=== PATIENT | female | born 1980 | race African-American/Black ===

== ENCOUNTER 2021-01-08 19:16 | Inpatient (IN) | payer OTHER ==
[2021-01-08 20:47] LABS: BASO % 0.6 % (0-2.0); HEMATOCRIT 35.5 % (32.4-45.2); HEMOGLOBIN 11.7 GM/dL (10.7-15.3); LYMPH % 24.1 % (8-40); MCH 26.1 pg (25.7-33.7); MCHC 32.9 g/dl (32.0-36.0); MEAN CELL VOLUME 79.3 fl (80-96); MEAN PLT VOLUME 8.5 fl (7.5-11.1); MONO % 8.1 % (3.8-10.2); NEUT % 66.2 % (42.8-82.8); PLATELET COUNT 218 10^3/uL (134-434); RBC 4.48 M/mm3 (3.60-5.2); RDW 17.4 % (11.6-15.6); WHITE BLOOD COUNT 10.1 K/mm3 (4.0-10.0)
[2021-01-08] MEDS ORDERED: PROMETHAZINE HCL 25 MG/1 ML VIAL IVPUSH ONE (20:49)
[2021-01-08] MEDS ORDERED: BUTORPHANOL TARTRATE 2 MG/ML VIAL IVPB ONE (20:49)
[2021-01-08 20:54] LABS: INR 0.91 (0.83-1.09); PROTHROMBIN TIME (PATIENT) 11.2 SEC (9.7-13.0)
[2021-01-08 20:57] LABS: ACTIVATED PTT 26.6 SECONDS (25.2-36.5)
[2021-01-08 21:09] LABS: CALCIUM 8.8 mg/dL (8.5-10.1)
[2021-01-08 21:10] LABS: BLOOD UREA NITROGEN 17.6 mg/dL (7-18)
[2021-01-08] MEDS ORDERED: FLUCONAZOLE 150 MG TABLET PO ONE (21:12)
[2021-01-08 21:13] LABS: CREATININE 0.9 mg/dL (0.55-1.3)
[2021-01-08] MEDS: OXYTOCIN 30 UNITS in 0.9% NS 30 UNIT/500 ML INFUS.BAG IVPB SCH (21:30)
[2021-01-08 21:36] VITALS: BMI 34.7
[2021-01-08] MEDS: DEXTROSE 5%-LACTATED RINGERS 1,000 ML IV SCH (21:43)
[2021-01-08] MEDS: ELECTROLYTE-148 SOLN 1,000 ML IV SCH (21:44)
[2021-01-08] MEDS ORDERED: OXYTOCIN 30 UNITS in 0.9% NS 30 UNIT/500 ML INFUS.BAG IVPB ONE (22:05)
[2021-01-08] MEDS ORDERED: BUTORPHANOL TARTRATE 2 MG/ML VIAL ONE (23:46)
[2021-01-08] MEDS ORDERED: PROMETHAZINE HCL 25 MG/1 ML VIAL ONE (23:46)
[2021-01-09] MEDS ORDERED: FENTANYL/BUPIVACAINE/NS/PF - PCEA - 50 ML DISP.SYRIN EP ONE ×5 (04:05→22:13)
[2021-01-09] MEDS: FENTANYL/BUPIVACAINE/NS/PF - PCEA - 50 ML DISP.SYRIN EP SCH ×5 (04:50→22:30)
[2021-01-09] MEDS ORDERED: NALOXONE HCL 0.4 MG/ML VIAL IVPUSH PRN (05:09)
[2021-01-09] MEDS ORDERED: PCA PUMP NR ONE ×4 (09:29→22:14)
[2021-01-09] MEDS: ELECTROLYTE-148 SOLN 1,000 ML IV SCH ×2 (14:40→21:30)
[2021-01-09] MEDS ORDERED: SODIUM CHLORIDE 500 ML IV ONE (20:30)
[2021-01-09 21:38] LABS: URINE APPEARANCE TURBID; URINE BILIRUBIN SMALL (NEGATIVE); URINE COLOR DK YELLOW; URINE GLUCOSE (UA) NEGATIVE (NEGATIVE); URINE KETONE 80 (NEGATIVE)
[2021-01-09 21:39] LABS: EPI CELLS 5.2 /uL (0-25.1); HYALINE CASTS 1.93 /uL (0-3.1); URINE BACTERIA 10.2 /uL (0-1359); URINE LEUK ESTERASE TRACE (NEGATIVE); URINE NITRITE NEGATIVE (NEGATIVE); URINE PROTEIN 100 (NEGATIVE); URINE RBC 1120 /uL (0-23.9); URINE WBC 35.7 /uL (0-25.8)
[2021-01-10] MEDS: FENTANYL/BUPIVACAINE/NS/PF - PCEA - 50 ML DISP.SYRIN EP SCH (02:10)
[2021-01-10] MEDS ORDERED: FENTANYL/BUPIVACAINE/NS/PF - PCEA - 50 ML DISP.SYRIN EP ONE ×2 (02:11→05:59)
[2021-01-10] MEDS ORDERED: CITRIC ACID/SODIUM CITRATE 30 ML UNIT-DOSE CUP PO ONE (06:30)
[2021-01-10] MEDS ORDERED: LIDOCAINE HCL/EPINEPHRINE/PF 10 ML VIAL ONE (06:31)
[2021-01-10] MEDS ORDERED: PROPOFOL 20 ML ONE ×3 (06:35→08:11)
[2021-01-10] MEDS ORDERED: morphine SULFATE (PF) 1 MG/2 ML SYRINGE ONE ×2 (06:38)
[2021-01-10] MEDS ORDERED: SUCCINYLCHOLINE CHLORIDE 200 MG/10 ML SYRINGE ONE (08:10)
[2021-01-10] MEDS: OXYTOCIN 30 UNITS in 0.9% NS 30 UNIT/500 ML INFUS.BAG IVPB SCH (08:17)
[2021-01-10] MEDS: DEXTROSE 5%-LACTATED RINGERS 1,000 ML IV SCH (08:18)
[2021-01-10] MEDS ORDERED: BENZOCAINE 20% 57 GM BOTTLE TP PRN (09:00)
[2021-01-10] MEDS ORDERED: DEXTROSE 5%-LACTATED RINGERS 1,000 ML IV SCH (09:00)
[2021-01-10] MEDS ORDERED: oxyCODONE HCL 5 MG TABLET PO PRN ×2 (09:00)
[2021-01-10] MEDS ORDERED: WITCH HAZEL 50% (TUCKS) 40 PAD/JAR PAD TP PRN (09:00)
[2021-01-10] MEDS ORDERED: IBUPROFEN 800 MG/8 ML IJ IVPB PRN (09:00)
[2021-01-10] MEDS ORDERED: OXYTOCIN 20 UNITS in 0.9% NS 20 UNITS/1,000 ML INFUS.BAG IV SCH (09:00)
[2021-01-10] MEDS ORDERED: diphenhydrAMINE HCL 25 MG CAPSULE (FP) PO PRN (09:00)
[2021-01-10] MEDS ORDERED: BENZOCAINE 28 GM HEMORRHOIDAL OINTMENT PR PRN (09:00)
[2021-01-10] MEDS ORDERED: METHYLERGONOVINE MALEATE 0.2 MG/1 ML AMP IM PRN (09:00)
[2021-01-10 09:19] LABS: CORD BASE EXCESS -7.5 mmol/L (0-2); CORD HCO3 19.7 mmHg (20-29); CORD PCO2 45.7 mmHg (30-78); CORD pH 7.252 (7.14-7.44)
[2021-01-10 09:20] LABS: CORD HCO3 22.1 mmHg (20-29); CORD PCO2 59.9 mmHg (30-78); CORD pH 7.184 (7.14-7.44)
[2021-01-10] MEDS ORDERED: ceFAZolin SODIUM 1 GM VIAL ONE ×2 (15:14→23:10)
[2021-01-10] MEDS ORDERED: DEXTROSE 5%-WATER - 50 ML IVPB ONE ×2 (15:14→23:09)
[2021-01-10] MEDS: CEFAZOLIN 1 GM in DEXTROSE 5%-WATER - 50 ML IVPB SCH ×2 (15:23→23:18)
[2021-01-10] MEDS: ENOXAPARIN NA (PORCINE) 40 MG/0.4 ML DISP.SYRIN SQ SCH (21:12)
[2021-01-11 08:07] LABS: BASO % 0.4 % (0-2.0); EOS % 0.2 % (0-4.5); HEMATOCRIT 28.6 % (32.4-45.2); HEMOGLOBIN 9.1 GM/dL (10.7-15.3); LYMPH % 15.3 % (8-40); MCH 25.5 pg (25.7-33.7); MCHC 31.9 g/dl (32.0-36.0); MEAN CELL VOLUME 80.1 fl (80-96); NEUT % 75.1 % (42.8-82.8); PLATELET COUNT 211 10^3/uL (134-434); RBC 3.58 M/mm3 (3.60-5.2); RDW 17.4 % (11.6-15.6); WHITE BLOOD COUNT 14.3 K/mm3 (4.0-10.0)
[2021-01-11] MEDS ORDERED: BISACODYL 10 MG SUPP.RECT PR PRN (09:01)
[2021-01-11] MEDS: IBUPROFEN 600 MG TABLET (FP) PO PRN ×2 (14:01→21:06)
[2021-01-11] MEDS: SIMETHICONE 80 MG TAB.CHEW (FP) PO PRN ×2 (14:02→21:05)
[2021-01-11] MEDS: ENOXAPARIN NA (PORCINE) 40 MG/0.4 ML DISP.SYRIN SQ SCH (21:05)
[2021-01-12] MEDS ORDERED: SERTRALINE HCL 50 MG TABLET (FP) PO ONE (11:15)
[2021-01-12] MEDS: IBUPROFEN 600 MG TABLET (FP) PO PRN ×2 (17:10→21:40)
[2021-01-12] MEDS: ENOXAPARIN NA (PORCINE) 40 MG/0.4 ML DISP.SYRIN SQ SCH (21:39)
[2021-01-12] MEDS: SIMETHICONE 80 MG TAB.CHEW (FP) PO PRN (21:41)
[2021-01-12] MEDS ORDERED: SENNOSIDES/DOCUSATE COMBO (SENNA PLUS) TABLET (UD) PO PRN (22:00)
[2021-01-13] MEDS: IBUPROFEN 600 MG TABLET (FP) PO PRN (06:14)
[2021-01-13 07:08] LABS: BASO % 1.4 % (0-2.0); EOS % 2.2 % (0-4.5); HEMATOCRIT 29.6 % (32.4-45.2); HEMOGLOBIN 9.9 GM/dL (10.7-15.3); LYMPH % 28.9 % (8-40); MCH 26.3 pg (25.7-33.7); MCHC 33.3 g/dl (32.0-36.0); MEAN CELL VOLUME 78.8 fl (80-96); MEAN PLT VOLUME 8.5 fl (7.5-11.1); NEUT % 61.5 % (42.8-82.8); PLATELET COUNT 258 10^3/uL (134-434); RBC 3.75 M/mm3 (3.60-5.2); RDW 17.9 % (11.6-15.6); WHITE BLOOD COUNT 10.9 K/mm3 (4.0-10.0)
[2021-01-13 13:03] VITALS: BP 112/76; PULSE 88; TEMP 98.6
== END 2021-01-13 12:35 | disposition home or self-care (01) | DRG 788 ==
LOC: JLDR 19:16 → J3W 01-10 11:51
PROVIDERS: ADMIT Obstetrics & Gynecology; ATTEND Obstetrics & Gynecology
PROC: 10D00Z1 Extraction of Products of Conception, Low, Open Approach (ICD-10-PCS; principal; 2021-01-10)
DX: O62.0 Primary inadequate contractions (principal); O34.13 Maternal care for benign tumor of corpus uteri, third trimester; O62.1 Secondary uterine inertia; O99.344 Other mental disorders complicating childbirth; F32.A Depression, unspecified; O99.214 Obesity complicating childbirth; E66.9 Obesity, unspecified; Z3A.39 39 weeks gestation of pregnancy; Z37.0 Single live birth
CPT/HCPCS: 36415; 36600; 80048; 81003; 82803; 84439; 84443; 85025; 85610; 85730; 86780; 86850; 86900; 86901; 88307-TC; 93005; 93010; C9803; U0003; U0005